=== PATIENT | female | born 1980 | race Caucasian/White ===

== ENCOUNTER 2016-05-06 16:00 | Inpatient (IN) | payer OTHER ==
[~2016-05-06] VITALS: Ht 162.6 cm; Wt 52.6 kg
[~2016-05-06 16:00] MED LIST: MYSOLINE50 MG PO; NORCO 5/325 MG1 TAB PO; PARLODEL2.5 M1 PO; PERCOCET 5/3251 TAB PO
[2016-05-06 16:04] VITALS: BP 125/84
--- NOTE | 2016-05-06 16:30 | NUR ---
35/F BIB FAMILY C/O RIGHT LOWER ABDOMINAL PAIN ,N/V & HEADACHE X 3 DAYS. SKIN IS PINK/WARM/DRY; AAOX4 WITH EVEN AND STEADY GAIT; LUNGS CLEAR BL; HR EVEN AND REGULAR; PT DENIES ANY FEVER, CP, SOB, OR COUGH AT THIS TIME; PATIENT STATES PAIN OF 10/10 AT THIS TIME; VSS; PATIENT POSITIONED FOR COMFORT; HOB ELEVATED; BEDRAILS UP X2; BED DOWN. ER MD MADE AWARE OF PT STATUS.
[2016-05-06] MEDS ORDERED: NACL 0.9% 1,000 ML IV SCH (16:47)
[2016-05-06] MEDS ORDERED: NACL 0.9% 1,000 ML IV ONE ×2 (16:50→18:50)
[2016-05-06] MEDS ORDERED: FAMOTIDINE 20 MG/2 ML VIAL IVP ONE (16:50)
[2016-05-06] MEDS ORDERED: ONDANSETRON 4 MG/2 ML VIAL IVP ONE (16:50)
[2016-05-06] MEDS ORDERED: HYDROmorphone 1 MG/ML AMP IVP ONE ×2 (16:50→18:50)
[2016-05-06] MEDS ORDERED: DEXT 5% / NACL 0.45% 1,000 ML IV ONE (18:50)
--- NOTE | 2016-05-06 19:20 | NUR ---
CALLED TO GIVE REPORT, BRANDY LEYVA WILL CALL BACK IN 5 MINS
--- NOTE | 2016-05-06 19:27 | NUR ---
Patient will be admitted to care of DR RINKU TRAYLOR. Admited to [facility]. Will go to [id number] . Belongings list completed. Report to BRANDY LEYVA.
[2016-05-06 20:00] VITALS: BP 113/78
--- NOTE | 2016-05-06 20:00 | NUR ---
ADMITTED 35 Y/O FEMALE TO MED/SURG FROM ER AT 1940 PM WITH DX: ABDOMINAL PAIN. INITIAL ASSESSMENT, BODY CHECK AND ADMISSION INTERVENTION DONE. PATIENT AAO X 4, ABLE TO FOLLOW COMMAND AND MAKE KNOWN AND AMBULATORY BY SELF WITH STEADY GAIT. NO S/S OF DISTRESS OR SOB NOTED UPON ADMISSION. PAIN UNDER CONTROL AFTER POST-MEDICATION IN ER. SKIN WARM/DRY TO TOUCH WITH NORMAL COLOR AND INTACT. INSTRUCTED PATIENT TO UNIT/ENVIRONMENT. ALSO, DISCUSSED PLAN OF CARE, PAIN MANAGEMENT AND MEDICATION REGIMEN WITH PATIENT AND PATIENT VERBALIZED UNDERSTANDING. PLACED PATIENT ON SAFETY/SEIZURE PRECAUTIONS AND WILL CONTINUE TO MONITOR. CALL LIGHT LEFT WITHIN REACH.
[2016-05-06] MEDS: MORPHINE SULFATE 2 MG/ML SYR IVP PRN (21:19)
[2016-05-06] MEDS ORDERED: PNEUMOCOCCAL VACCINE 23 MCG/0.5 ML VIAL IMVAC SCH (21:35)
--- NOTE | 2016-05-06 21:58 | NUR ---
ADMINISTERED IVF AND PRN MEDICATIONS FOR C/O ABDOMINAL PAIN MD'S ORDERED WITH EDUCATION GIVEN. PATIENT TOLERATED WELL AND STATED WITH SOME PAIN RELIEF, 2/10, AFTER 30 MINS POST-MEDICATION. ALL NEEDS ARE ATTENDED. KEPT PATIENT IN COMFORTABLE POSITION/WARM AND WILL CONTINUE TO MONITOR.
[2016-05-07] VITALS: BP 114/63
--- NOTE | 2016-05-07 00:40 | NUR ---
PATIENT RESTED QUIETLY IN BED. V/S REMAINED WNL AND NO S/S OF DISTRESS NOTED. WILL CONTINUE TO MONITOR.
--- NOTE | 2016-05-07 03:00 | NUR ---
ROUNDS MADE, SEEN PATIENT AMBULATED TO THE RESTROOM BY SELF AND TOLERATED WELL. NO CHANGE IN CONDITION NOTED.
[2016-05-07] MEDS: MORPHINE SULFATE 2 MG/ML SYR IVP PRN ×3 (04:45→14:49)
--- NOTE | 2016-05-07 04:50 | NUR ---
ADMINISTERED PAIN MEDICATION ORDERED FOR C/O LOWER ABDOMINAL PAIN. V/S REMAINED WNL. WILL CONTINUE TO MONITOR FOR EFFECTIVENESS.
--- NOTE | 2016-05-07 07:18 | NUR ---
ENDORSED PLAN OF CARE TO BRANDY RHODES, AT BEDSIDE. PATIENT REMAINED IN STABLE CONDITION AND NO APPARENT DISTRESS NOTED.
--- NOTE | 2016-05-07 07:20 | NUR ---
RECEIVED REPORT FROM KANDY RN. PT SLEEPING IN BED. AAOX4. NO S/S OF ACUTE DISTRESS. IV SITE PATENT AND INTACT. CALL LIGHT WITHIN REACH. SAFETY MEASURES ENSURED. WILL CONTINUE TO MONITOR.
[2016-05-07 08:00] VITALS: BP 108/67
--- NOTE | 2016-05-07 10:36 | NUR ---
PT RESTING IN BED. NO S/S OF ACUTE DISTRESS. PT STATES PAIN IS 7/10. MEDICATED ORDERED. CALL LIGHT WITHIN REACH. SAFETY MEASURES ENSURED. WILL CONTINUE TO MONITOR.
--- NOTE | 2016-05-07 11:55 | NUR ---
PT RESTING IN BED. NO S/S OF ACUTE DISTRESS. PT STATES PAIN IS 2/10, REDUCED AND TOLERABLE. CALL LIGHT WITHIN REACH. SAFETY MEASURES ENSURED. WILL CONTINUE TO MONITOR.
[2016-05-07] MEDS ORDERED: NICOTINE TRANSD SYS 21 MG/24 HR PATCH TD SCH (13:52)
--- NOTE | 2016-05-07 14:25 | NUR ---
PT RESTING IN BED. NO S/S OF ACUTE DISTRESS. PT DENIES PAIN. CALL LIGHT WITHIN REACH. SAFETY MEASURES ENSURED. WILL CONTINUE TO MONITOR.
--- NOTE | 2016-05-07 16:15 | NUR ---
PT RESTING IN BED. NO S/S OF ACUTE DISTRESS. PT STATES PAIN IS 10/10 EVEN AFTER MORPHINE ADMINISTRATION. PT'S STOMACH APPEARS BLOATED. DR. WILSON MADE AWARE. NEW ORDERS RECEIVED. WILL FOLLOW UP WITH PLAN OF CARE. CALL LIGHT WITHIN REACH. SAFETY MEASURES ENSURED. WILL CONTINUE TO MONITOR.
[2016-05-07 16:16] VITALS: BP 123/75
[2016-05-07] MEDS: HYDROmorphone 1 MG/ML AMP IVP PRN ×2 (16:29→21:06)
--- NOTE | 2016-05-07 19:10 | NUR ---
ENDORSED PLAN OF CARE TO NIGHT RN. PT REMAINS IN STABLE CONDITION.
--- NOTE | 2016-05-07 19:28 | NUR ---
RECEIVED REPORT FROM BRANDY RHODES, AT BEDSIDE. INITIAL ASSESSMENT AND BODY CHECK DONE. PATIENT AAO X 4, ABLE TO FOLLOW COMMAND AND MAKE KNOWN AND AMBULATORY BY SELF WITH STEADY GAIT. PATIENT CURRENTLY LYING DOWN ON THE BED AND WATCHING TV. NO S/S OF DISTRESS OR SOB NOTED. SKIN WARM/DRY TO TOUCH WITH NORMAL COLOR AND INTACT. PATIENT STILL C/O MILD LOWER ABDOMINAL PAIN AT THIS TIME. DISCUSSED PLAN OF CARE, PAIN MANAGEMENT AND MEDICATION REGIMEN WITH PATIENT AND PATIENT VERBALIZED UNDERSTANDING. PLACED PATIENT ON SAFETY/SEIZURE PRECAUTIONS AND WILL CONTINUE TO MONITOR. CALL LIGHT LEFT WITHIN REACH.
[2016-05-07 19:42] VITALS: BP 107/71
[2016-05-07] MEDS: PRIMIDONE 50 MG TAB PO SCH (20:27)
--- NOTE | 2016-05-07 20:30 | NUR ---
ADMINISTERED DUE MEDICATION MD'S ORDERED WITH EDUCATION GIVEN. PATIENT COMPLYING WITH MEDICATION AND TOLERATE WELL. KEPT PATIENT IN COMFORTABLE POSITION/WARM AND WILL CONTINUE TO MONITOR.
--- NOTE | 2016-05-07 22:30 | NUR ---
ROUNDS MADE, SEEN PATIENT RESTED COMFORTABLY IN BED WITHOUT S/S OF DISTRESS NOTED.
[2016-05-08] VITALS: BP 104/69
--- NOTE | 2016-05-08 00:58 | NUR ---
PATIENT IS CLINICALLY STABLE WITH UNCHANGED V/S. WILL CONTINUE TO MONITOR.
--- NOTE | 2016-05-08 04:10 | NUR ---
PATIENT RESTED WELL WITH EVEN AND UNLABORED RESPIRATORY RATE. NO CHANGE IN CONDITION NOTED. WILL CONTINUE TO MONITOR.
[2016-05-08] MEDS: HYDROmorphone 1 MG/ML AMP IVP PRN ×3 (05:47→20:02)
--- NOTE | 2016-05-08 07:30 | NUR ---
RECEIVED PT RESTING COMFORTABLY IN BED, AAOX4, ABLE TO VERBALIZE NEEDS; NO COMPLAINTS OF PAIN, N/V/D, OR S/S ACUTE DISTRESS AT THIS TIME. ROUTINE/PLAN OF CARE DISCUSSED AND REVIEWED, PT VERBALIZES UNDERSTANDING AND COMPLIANCE. IV SL TO LEFT AC, SITE ASYMPTOMATIC. SAFETY PRECAUTIONS OBSERVED AND MAINTAINED, ENCOURAGED PT TO CALL FOR ASSISTANCE NEEDED.
--- NOTE | 2016-05-08 07:33 | NUR ---
ENDORSED PLAN OF CARE TO BRANDY BEAN, AT BEDSIDE. PATIENT REMAINED IN STABLE CONDITION AND NO APPARENT DISTRESS NOTED.
[2016-05-08 08:00] VITALS: BP 103/70
--- NOTE | 2016-05-08 09:14 | NUR ---
PATIENT HAS BEEN SCREENED AND CATEGORIZED MODERATE NUTRITION RISK. PATIENT WILL BE SEEN WITHIN 3-5 DAYS OF ADMISSION. 05/09/16-05/11/[address]
[2016-05-08] MEDS: BROMOCRIPTINE 2.5 MG TAB PO SCH (09:26)
[2016-05-08] MEDS: NICOTINE TRANSD SYS 21 MG/24 HR PATCH TD SCH (09:32)
--- NOTE | 2016-05-08 09:49 | NUR ---
VSS. ADMINISTERED ROUTINE MEDS ORDERED WITH EDUCATION; MEDICATED WITH DILAUDID IVP FOR C/O SEVERE LOWER ABD PAIN, NARCOTIC EDUCATION AND ALTERNATIVE MEASURES OF PAIN MANAGEMENT DISCUSSED; SEE PAIN ASSESSMENT ENCOURAGED PT TO AMBULATE AND INCREASE PO FLUID INTAKE TO RELIEVE CONSTIPATION, PT VERBALIZES UNDERSTANDING AND COMPLIANCE. WILL CONTINUE TO MONITOR.
[2016-05-08] MEDS ORDERED: SODIUM PHOSPHATE 118 ML ENEM RC SCH (11:45)
--- NOTE | 2016-05-08 11:45 | NUR ---
PT SEEN AND ASSESSED BY DR HOGAN, DISCUSSED PT CONDITION AND PLAN OF CARE. NEW ORDERS ACKNOWLEDGED AND CARRIED OUT.
--- NOTE | 2016-05-08 13:35 | NUR ---
PT FINISHED LUNCH TRAY, C/O BLOATING. ENCOURAGED PT TO AMBULATE IN HALLWAY, AGREES TO HAVE FLEET ENEMA AFTERWARD. AMBULATING WITH SIGNIFICANT OTHER, STEADY GAIT NOTED.
--- NOTE | 2016-05-08 14:17 | NUR ---
PATIENT REFUSED FLEET ENEMA, STATES IT CAUSES DISCOMFORT TO HEMORRHOIDS. STATES SHE IS PASSING GAS WITH PRUNE JUICE. ENCOURAGED FLUIDS, PROVIDED MORE PRUNE JUICE AND WATER. WILL CONTINUE TO MONITOR.
--- NOTE | 2016-05-08 15:00 | NUR ---
PT PASSED SMALL AMT FORMED GREEN/BROWN STOOL. ENCOURAGED CONTINUED PO FLUID INTAKE, PT COMPLIANT.
[2016-05-08] MEDS: oxyCODONE/APAP 5/325 MG 1 TAB TAB PO PRN (15:53)
[2016-05-08 16:00] VITALS: BP 104/66
--- NOTE | 2016-05-08 18:00 | NUR ---
PT TOLERATING SOFT DIET WELL. NO S/S DISTRESS.
--- NOTE | 2016-05-08 19:10 | NUR ---
CONDITION STABLE, ENDORSED PLAN OF CARE TO BETA TESTER RN.
--- NOTE | 2016-05-08 19:22 | NUR ---
RECEIVED REPORT FROM DAY RN FOR CONTINUITY OF CARE. PATIENT IS A&OX4, DISCUSSED PLAN OF CARE WITH PATIENT, VERBALIZED UNDERSTANDING. SHIFT ASSESSMENT DONE, VS TAKEN, IN STABLE CONDITION. NO S/S OF RESPIRATORY DISTRESS NOTED ON ROOM AIR. PATIENT STATES PAIN 6/10 IN ABDOMEN AND HEADACHE, WILL MEDICATE PER MD ORDER. IV TO LT AC 2OG PATENT AND FLUSHED. SKIN INTACT. SAFETY PRECAUTIONS ENFORCED. FAMILY MEMBER AT BEDSIDE. CALL LIGHT WITHIN REACH, WILL CONTINUE TO MONITOR.
[2016-05-08 20:00] VITALS: BP 108/63
--- NOTE | 2016-05-08 20:02 | NUR ---
PT C/O 9/10 ABDOMINAL PAIN AND HEADACHE, MEDICATED PER MD ORDER. VS STABLE. CALL LIGHT WITHIN REACH.
[2016-05-08] MEDS: PRIMIDONE 50 MG TAB PO SCH (21:03)
--- NOTE | 2016-05-08 21:03 | NUR ---
DUE MEDICATION ADMINISTERED, TOLERATED WELL. PT IS AWAKE WATCHING TV. PT STATES PAIN IS "MUCH BETTER". CALL LIGHT WITHIN REACH.
--- NOTE | 2016-05-08 23:58 | NUR ---
VS TAKEN, STABLE. PT IS LAYING FLAT IN BED WITH NO S/S OF DISTRESS OR DISCOMFORT NOTED. STATES SHE "WANTS TO TRY TO SLEEP." CALL LIGHT WITHIN REACH.
--- NOTE | 2016-05-09 01:54 | NUR ---
PT IS SLEEPING. NO S/S OF DISTRESS OR DISCOMFORT NOTED. WILL CONTINUE TO MONITOR.
[2016-05-09] MEDS: HYDROmorphone 1 MG/ML AMP IVP PRN ×3 (02:22→21:17)
--- NOTE | 2016-05-09 04:02 | NUR ---
PT IS SLEEPING. NO S/S OF DISTRESS OR DISCOMFORT NOTED. CALL LIGHT WITHIN REACH.
--- NOTE | 2016-05-09 06:02 | NUR ---
PATIENT IS AWAKE IN BED. NO S/S OF DISTRESS OR DISCOMFORT NOTED. WILL CONTINUE TO MONITOR.
--- NOTE | 2016-05-09 07:15 | NUR ---
ENDORSED PATIENT TO DAYSHIFT RN FOR CONTINUITY OF CARE, PATIENT IS IN STABLE CONDITION.
[2016-05-09 08:00] VITALS: BP 108/63
[2016-05-09] MEDS: BROMOCRIPTINE 2.5 MG TAB PO SCH (09:07)
[2016-05-09] MEDS: oxyCODONE/APAP 5/325 MG 1 TAB TAB PO PRN (09:08)
[2016-05-09] MEDS: NICOTINE TRANSD SYS 21 MG/24 HR PATCH TD SCH (09:08)
--- NOTE | 2016-05-09 09:11 | NUR ---
VSS. ADMINISTERED ROUTINE MEDS ORDERED WITH EDUCATION. PERCOCET GIVEN FOR C/O MIGRAINE, SEE PAIN ASSESSMENT. PT TOLERATED WELL, INDEPENDENT ADLs OBSERVED. ENCOURAGED PO FLUID INTAKE AND AMBULATION.
--- NOTE | 2016-05-09 11:30 | NUR ---
PT SHOWERED, GOWN AND LINEN CHANGED.
--- NOTE | 2016-05-09 14:45 | NUR ---
PT EVALUATED BY DR HOGAN, DISCUSSED PT CONDITION AND PLAN OF CARE, NEW ORDERS ACKNOWLEDGED. INSTRUCTED PT TO REMAIN NPO FROM NOW UNTIL US ABD COMPLETED. PT VERBALIZES UNDERSTANDING AND COMPLIANCE.
[2016-05-09 16:00] VITALS: BP 104/68
--- NOTE | 2016-05-09 17:45 | NUR ---
DINNER TRAY HELD FOR US ABD. PT AWARE.
[2016-05-09] MEDS ORDERED: METOCLOPRAMIDE 10 MG/2 ML INJ VIAL IVP PRN (18:10)
--- NOTE | 2016-05-09 19:27 | NUR ---
CONDITION STABLE, ENDORSED PLAN OF CARE TO HIM SPECIALIST RN.
--- NOTE | 2016-05-09 19:30 | NUR ---
RECEIVED PT IN STABLE CONDITION FROM AM NURSE. AWAKE,ALERT AN ORIENTED X4/ MED SURG PT. WITH HL ON THE LT AC#20. CLEAR AND PATENT. FAMILY AT BEDSIDE. AWAITING FOR US OF ABDOMEN. SO PT KEPT NPO . INSTRUCTED PT THE NEED TO PUT THE PADS ON SIDE RAILS FOR PROTECTION. VERBALIZED UNDERSTANDING. CALL LIGHT PLACED WITHIN EASY REACH. WILL CONTINUE TO MONITOR.
--- NOTE | 2016-05-09 20:15 | NUR ---
US ABDOMEN DONE AT BEDSIDE. WILL FOLLOW UP RESULT.
[2016-05-09] MEDS ORDERED: AMITRIPTYLINE 25 MG TAB PO SCH (21:00)
[2016-05-09] MEDS ORDERED: MAGNESIUM OXIDE 400 MG TAB PO SCH (21:00)
[2016-05-09] MEDS: POLYETHYLENE GLYCOL 17 GM/PKT PO SCH (21:07)
[2016-05-09] MEDS: PRIMIDONE 50 MG TAB PO SCH (21:07)
[2016-05-09 21:14] VITALS: BP 119/74
--- NOTE | 2016-05-09 23:00 | NUR ---
SLEEPING WELL AT THIS TIME. NO S/S OF ANY DISCOMFORT NOR PAIN NOTED.
[2016-05-10 00:24] VITALS: BP 109/62
--- NOTE | 2016-05-10 01:55 | NUR ---
ASLEEP. NO S/S OF ANY DISCOMFORT NOR PAIN NOTED.
--- NOTE | 2016-05-10 04:00 | NUR ---
SLEEPING WELL AT THIS TIME. NO S/S OF ANY PAIN NOR DISCOMFORT NOTED.
--- NOTE | 2016-05-10 06:00 | NUR ---
PT SAID NO BM YET. BUT ABLE TO VOID X1 DURING THE NIGHT.
[2016-05-10 06:39] VITALS: BP 102/64
[2016-05-10] MEDS: HYDROmorphone 1 MG/ML AMP IVP PRN ×2 (06:42→12:34)
--- NOTE | 2016-05-10 06:42 | NUR ---
C/O PAIN ON RT LOWER ABDOMEN 09/04. MEDICATED ORDERED. WILL CONTINUE TO MONITOR.
--- NOTE | 2016-05-10 07:22 | NUR ---
ENDORSED PT IN STABLE CONDITION TO AM NURSE.
--- NOTE | 2016-05-10 07:23 | NUR ---
PT AWAKE ALERT AND ORIENTED X4. BREATHING EVENLY AND UNLABORED, NO SIGNS OF ACUTE DISTRESS. SKIN IS WARM AND DRY. NO EPISODES OF ANY NAUSEA OR VOMITING. NO C/O OF AND PAIN AT THIS TIME. DENIES OF ANY DISCOMFORT. ABLE TO PERFORM ADL'S INDEPENDENTLY. SAFETY PRECAUTIONS MAINTAINED. ALL NEEDS ATTENDED. CALL LIGHT WITHIN REACH.
[2016-05-10 08:00] VITALS: BP 91/56
[2016-05-10] MEDS: POLYETHYLENE GLYCOL 17 GM/PKT PO SCH (08:22)
[2016-05-10] MEDS: SENNA 8.6 MG TAB PO SCH ×2 (08:22→12:33)
[2016-05-10] MEDS: METOCLOPRAMIDE 10 MG/2 ML INJ VIAL IVP SCH ×2 (08:22→12:34)
[2016-05-10] MEDS: BROMOCRIPTINE 2.5 MG TAB PO SCH (08:23)
[2016-05-10] MEDS: NICOTINE TRANSD SYS 21 MG/24 HR PATCH TD SCH (08:23)
[2016-05-10] MEDS ORDERED: PANTOPRAZOLE 40 MG INJ VIAL IVP SCH (09:00)
--- NOTE | 2016-05-10 09:55 | NUR ---
XENIA NOTE SENT INITIAL REVIEW TO [facility] FAX# [phone] PH# [place] [phone]
--- NOTE | 2016-05-10 14:28 | NUR ---
SPOKE WITH Saundra FERRER. RECEIVED ORDER MAY ADVANCE DIET TO REGULAR TOLERATED. OK TO D/C ON GASTRO STANDPOINT. PAGED DR. WILSON. AWAITING FOR CALL BACK.
[2016-05-10 15:20] VITALS: BP 98/69
--- NOTE | 2016-05-10 15:20 | NUR ---
PT REQUESTED TO SIGN AMA, RISKS AND BENEFITS EXPLAINED, CHARGE NURSE MADE AWARE, DOUGH SCALER AND MIXER AWARE. PAGED DR. WILSON AND AWAITING FOR RESPONSE.
--- NOTE | 2016-05-10 15:25 | NUR ---
PT SIGNED AMA, LEFT UNIT, PERSONAL BELONGINGS WITH PT. PICKED UP BY SIGNIFICANT OTHER. IV LINE AND WRIST BANDS REMOVED. WENT HOME VIA PRIVATE AUTO.
== END 2016-05-10 15:25 | disposition left against medical advice (07) | DRG 282 ==
LOC: MED 16:00 → MTU 18:58 → OBSVTOIN 05-09 14:38
PROVIDERS: ADMIT Internal Medicine Pulmonary Disease; ATTEND Internal Medicine Pulmonary Disease
DX: K85.30 Drug induced acute pancreatitis without necrosis or infection (principal); I95.9 Hypotension, unspecified; F11.20 Opioid dependence, uncomplicated; E86.0 Dehydration; K86.1 Other chronic pancreatitis; F12.188 Cannabis abuse with other cannabis-induced disorder; M79.7 Fibromyalgia; G40.909 Epilepsy, unspecified, not intractable, without status epilepticus; G89.4 Chronic pain syndrome; J45.909 Unspecified asthma, uncomplicated; K59.09 Other constipation; G43.909 Migraine, unspecified, not intractable, without status migrainosus; M54.5 Low back pain; R11.10 Vomiting, unspecified; F10.21 Alcohol dependence, in remission; F19.10 Other psychoactive substance abuse, uncomplicated; F17.210 Nicotine dependence, cigarettes, uncomplicated; Z71.6 Tobacco abuse counseling; Z90.710 Acquired absence of both cervix and uterus; Z98.890 Other specified postprocedural states; Z88.2 Allergy status to sulfonamides; Y92.89 Other specified places as the place of occurrence of the external cause
CPT/HCPCS: 96361; 96374; 96375; 96376; 99285; G0378

== ENCOUNTER 2016-10-19 03:20 | Emergency (ER) | payer MEDICAID, OTHER ==
[~2016-10-19] VITALS: Ht 162.6 cm; Wt 56.7 kg
[~2016-10-19 03:20] MED LIST changes: -MYSOLINE50 MG PO; -NORCO 5/325 MG1 TAB PO; +OXYC1TAB PO; +PAR2.5 PO; -PARLODEL2.5 M1 PO; -PERCOCET 5/3251 TAB PO; +PRIM50TA13 PO
[2016-10-19 03:33] VITALS: BP 128/75
--- NOTE | 2016-10-19 03:39 | NUR ---
Patient to bed 05.
--- NOTE | 2016-10-19 03:45 | NUR ---
36 Y/O F W/C/O RASH AND PAIN TO R LOWER BACK X 3 DAYS. PT STATES HAS A HX OF SHINGLES, EPILEPSY, FIBROMYALGIA, AND PANCREATITIS. NO S/S OF DISTRESS NOTED. ER MD MADE AWARE.
[2016-10-19] MEDS ORDERED: ACYCLOVIR 500 MG in NACL 0.9% 100 ML IV ONE (04:25)
[2016-10-19] MEDS ORDERED: predniSONE 20 MG TAB PO ONE (04:25)
[2016-10-19] MEDS ORDERED: methylPREDNISolone SS 125 MG in WATER STERILE 2 ML IV ONE (04:25)
[2016-10-19] MEDS ORDERED: HYDROmorphone 1 MG/ML AMP IVP ONE (04:25)
[2016-10-19] MEDS ORDERED: HYDROmorphone 1 MG/ML AMP IM ONE (04:25)
[2016-10-19] MEDS ORDERED: ACYCLOVIR 500 MG VIAL IV ONE (04:38)
--- NOTE | 2016-10-19 04:53 | NUR ---
PT SLEEPING IN BED, VSS. NO S/S OF DISTRESS NOTED AT THIS MOMENT.
[2016-10-19 06:05] VITALS: BP 109/70
--- NOTE | 2016-10-19 06:05 | NUR ---
Patient discharged with v/s stable. Written and verbal after care instructions given and explained. Patient alert, oriented and verbalized understanding of instructions. Ambulatory with steady gait. All questions addressed prior to discharge. ID band removed. Patient advised to follow up with PMD OR RETURN TO ER IF CONDITION WORSENS. Rx of ACYCLOVIR, PREDNISONE, AND NORCO given. Patient educated on indication of medication including possible reaction and side effects. Opportunity to ask questions provided and answered.
== END 2016-10-19 06:05 | disposition home or self-care (01) ==
LOC: MED 03:20
DX: B02.8 Zoster with other complications (principal); R03.0 Elevated blood-pressure reading, without diagnosis of hypertension; Z88.2 Allergy status to sulfonamides; Z79.899 Other long term (current) drug therapy
CPT/HCPCS: 96365; 96375; 99285; J0133; J1170; J2930

== ENCOUNTER 2016-11-26 23:35 | Emergency (ER) | payer MEDICAID, OTHER ==
[~2016-11-26] VITALS: Ht 160 cm; Wt 50.1 kg
[~2016-11-26 23:35] MED LIST changes: +MYSOLINE50 MG PO; +NORCO 5/325 MG1 TAB PO; -OXYC1TAB PO; -PAR2.5 PO; +PARLODEL2.5 M1 PO; +PERCOCET 5/3251 TAB PO; -PRIM50TA13 PO
[2016-11-26 23:46] VITALS: BP 119/74
[2016-11-27] MEDS: KETOROLAC 30 MG/ML VIAL IM ONE (03:24)
[2016-11-27] MEDS: cefTRIAXone 250 MG in LIDOCAINE 1% ED 0.9 ML IM ONE (05:19)
[2016-11-27] MEDS: AZITHROMYCIN 250 MG TAB PO ONE (05:19)
[2016-11-27 05:38] VITALS: BP 120/66
== END 2016-11-27 05:38 | disposition home or self-care (01) ==
LOC: MED 23:35
DX: N76.0 Acute vaginitis (principal); F19.10 Other psychoactive substance abuse, uncomplicated; Z88.2 Allergy status to sulfonamides; Z79.899 Other long term (current) drug therapy; T74.21XA Adult sexual abuse, confirmed, initial encounter; Y93.89 Activity, other specified; Y92.89 Other specified places as the place of occurrence of the external cause; Y99.8 Other external cause status
CPT/HCPCS: 36415; 80053; 80305; 81002; 81025; 83690; 85025; 87491; 96372; 99284; J0696; J1885; J2001

== ENCOUNTER 2016-12-12 17:25 | Emergency (ER) | payer OTHER ==
[~2016-12-12] VITALS: Ht 162.6 cm; Wt 49.9 kg
[~2016-12-12 17:25] MED LIST changes: -MYSOLINE50 MG PO; -NORCO 5/325 MG1 TAB PO; +OXYC1TAB PO; +PAR2.5 PO; -PARLODEL2.5 M1 PO; -PERCOCET 5/3251 TAB PO; +PRIM50TA13 PO
[2016-12-12 17:51] VITALS: BP 117/71
--- NOTE | 2016-12-12 19:44 | NUR ---
PT TAKEN TO BED 6
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
--- NOTE | 2016-12-12 19:46 | NUR ---
Dr. Seals evaluating patient at bedside.
[2016-12-12] MEDS ORDERED: KETOROLAC 30 MG/ML VIAL IM ONE (19:50)
[2016-12-12] MEDS ORDERED: HYDROcodone/APAP 5/325 MG 1 TAB TAB PO ONE (19:50)
[2016-12-12 20:20] VITALS: BP 126/78
--- NOTE | 2016-12-12 20:20 | NUR ---
DPatient discharged with v/s stable. Written and verbal after care instructions given and explained. Patient alert, oriented and verbalized understanding of instructions. Ambulatory with steady gait. All questions addressed prior to discharge. ID band removed. Patient advised to follow up with PMD. Rx of NORCO 5-325MG ONE TAB EVERY 4 HOURS PRN PAIN given. Patient educated on indication of medication including possible reaction and side effects. Opportunity to ask questions provided and answered. HOMELESS PACKET PROVIDED
== END 2016-12-12 20:20 | disposition home or self-care (01) ==
LOC: MED 17:25
DX: Z76.0 Encounter for issue of repeat prescription (principal); G89.29 Other chronic pain; M54.5 Low back pain; M79.7 Fibromyalgia; Z88.2 Allergy status to sulfonamides; Z79.899 Other long term (current) drug therapy
CPT/HCPCS: 96372; 99283; J1885

== ENCOUNTER 2016-12-17 02:03 | Emergency (ER) | payer OTHER ==
[~2016-12-17] VITALS: Ht 162.6 cm; Wt 52.2 kg
[2016-12-17 02:09] VITALS: BP 126/72
--- NOTE | 2016-12-17 02:27 | NUR ---
PT TAKEN TO BED 7
--- NOTE | 2016-12-17 02:30 | NUR ---
PATIENT IS A 36 Y/O FEMALE WHO PRESENTS TO THE ED C/O ABD PAIN. PT STATES, "I HAVE A HERNIA AND I FEEL PAIN IN MY STOMACH." PT REPORTS 6/10 SHARP PAIN THAT RADIATES TO THE GENITAL AREA. PT REPORTS BURNING ON URINATION, DENIES N/V/D, REPORTS CONSTIPATION. PT AAOX4, RR EVEN/UNLABORED, SKIN IS COOL/DRY, AMBULATED TO BED WITH STEADY GAIT. PT REPOSITIONED FOR COMFORT, BED IN LOWEST POSITION. ER MD DR. PERALTA NOTIFIED. WILL CONTINUE TO MONITOR.
--- NOTE | 2016-12-17 02:41 | NUR ---
Adolph luis in ED - 12/17/[address] Lazo evaluating patient at bedside.
[2016-12-17 02:45] LABS: HEMATOCRIT 43.3 % (36-48); HEMOGLOBIN 14.3 g/dL (12.0-16.0); MEAN CORPUSCULAR HEMOGLOBIN 32 pg (27-31); MEAN CORPUSCULAR HGB CONC 33 g/dL (33-37); MEAN CORPUSCULAR VOLUME 98 fL (80-94); PLATELET COUNT (AUTO) 324 K/uL (140-450); RED BLOOD CELL COUNT(AUTO) 4.42 MIL/uL (4.20-5.40); RED CELL DISTRIBUTION WIDTH 11.9 % (11.6-13.7); WHITE BLOOD COUNT (AUTO) 7.7 K/uL (4.8-10.8)
[2016-12-17 02:47] LABS: BILIRUBIN,URINE NEGATIVE (NEGATIVE); BLOOD, URINE 1+ (NEGATIVE); COLOR,URINE YELLOW (YELLOW); LEUKOCYTE ESTERASE ,URINE NEGATIVE (NEGATIVE); NITRITE, URINE NEGATIVE (NEGATIVE); UGLUCOSE NEGATIVE (NEGATIVE)
--- NOTE | 2016-12-17 02:55 | NUR ---
Dr. Lazo evaluating patient at bedside.
[2016-12-17 02:56] LABS: ANION GAP 5.1 (8-16); APPEARANCE,URINE SLIGHTLY HAZY (CLEAR); CARBON DIOXIDE 33.1 mmol/L (21-32); POTASSIUM 4.2 mmol/L (3.5-5.1)
[2016-12-17 03:02] LABS: ALBUMIN 4.1 g/dL (3.4-5.0); TOTAL BILIRUBIN 0.3 mg/dL (0.0-1.0)
[2016-12-17 03:08] LABS: LYMPHOCYTES % (MANUAL) 56 % (20-46); MONOCYTES % (MANUAL) 7 % (5-12)
[2016-12-17 03:12] LABS: RBC,URINE 3-10 (FEW) /HPF (0-5); WBC,URINE 0-5 (RARE) /HPF (0-5)
[2016-12-17 03:13] LABS: CALCIUM OXALATE CRYSTALS,UR 0-10 /HPF (None Seen)
--- NOTE | 2016-12-17 03:18 | NUR ---
PT TAKEN TO CT VIA WHEELCHAIR
--- NOTE | 2016-12-17 03:28 | NUR ---
PT RETURN FROM CT
[2016-12-17 04:30] VITALS: BP 127/70
--- NOTE | 2016-12-17 04:30 | NUR ---
Patient discharged with v/s stable. Written and verbal after care instructions given and explained. Patient verbalized understanding. Ambulatory with steady gait. All questions addressed prior to discharge. Advised to follow up with PMD.
== END 2016-12-17 04:30 | disposition home or self-care (01) ==
LOC: MED 02:03
DX: K42.9 Umbilical hernia without obstruction or gangrene (principal); M79.7 Fibromyalgia; Z90.710 Acquired absence of both cervix and uterus; Z79.899 Other long term (current) drug therapy; Z88.2 Allergy status to sulfonamides
CPT/HCPCS: 36415; 74150; 80053; 81001; 81025; 82150; 83690; 84703; 85025; 99285

== ENCOUNTER 2016-12-21 17:21 | Emergency (ER) | payer OTHER ==
[~2016-12-21] VITALS: Ht 162.6 cm; Wt 50.8 kg
[2016-12-21 17:48] VITALS: BP 120/72
--- NOTE | 2016-12-21 19:10 | NUR ---
Pt ambulated to bed 9.
[2016-12-21] MEDS ORDERED: KETOROLAC 60 MG/2 ML VIAL IM ONE (19:20)
--- NOTE | 2016-12-21 19:20 | NUR ---
Patient being evaluated by Dr. Little at bedside.
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
[2016-12-21 20:00] VITALS: BP 107/65
--- NOTE | 2016-12-21 20:00 | NUR ---
Patient discharged with v/s stable. Written and verbal after care instructions given and explained. Patient alert, oriented and verbalized understanding of instructions. Ambulatory with steady gait. All questions addressed prior to discharge. ID band removed. Patient advised to follow up with PMD. Rx of MOTRIN 600MG, NORCO 5MG given. Patient educated on indication of medication including possible reaction and side effects. Opportunity to ask questions provided and answered.
== END 2016-12-21 20:00 | disposition home or self-care (01) ==
LOC: MED 17:21
DX: M54.2 Cervicalgia (principal); M79.602 Pain in left arm; M79.601 Pain in right arm; F17.210 Nicotine dependence, cigarettes, uncomplicated; Z90.710 Acquired absence of both cervix and uterus; Z79.899 Other long term (current) drug therapy; Z88.2 Allergy status to sulfonamides; Y04.8XXA Assault by other bodily force, initial encounter; Y93.89 Activity, other specified; Y92.89 Other specified places as the place of occurrence of the external cause; Y99.8 Other external cause status
CPT/HCPCS: 96372; 99283; J1885

== ENCOUNTER 2017-01-13 21:50 | Emergency (ER) | payer OTHER ==
[~2017-01-13] VITALS: Ht 160 cm; Wt 52.2 kg
--- NOTE | 2017-01-13 21:50 | NUR ---
PT JM MAIN. STILL AWAITNG FOR BED. [place] WITH PT
[2017-01-13 22:03] VITALS: BP 128/78
--- NOTE | 2017-01-13 23:45 | NUR ---
PT TAKEN TO BED 10
[2017-01-14 01:15] LABS: HEMATOCRIT 38.5 % (36-48); HEMOGLOBIN 13.4 g/dL (12.0-16.0); MEAN CORPUSCULAR HEMOGLOBIN 34 pg (27-31); MEAN CORPUSCULAR HGB CONC 35 g/dL (33-37); MEAN CORPUSCULAR VOLUME 96 fL (80-94); PLATELET COUNT (AUTO) 242 K/uL (140-450); RED BLOOD CELL COUNT(AUTO) 3.99 MIL/uL (4.20-5.40); RED CELL DISTRIBUTION WIDTH 12.4 % (11.6-13.7); WHITE BLOOD COUNT (AUTO) 9.1 K/uL (4.8-10.8)
[2017-01-14 01:28] LABS: LYMPHOCYTES % (MANUAL) 22 % (20-46); MONOCYTES % (MANUAL) 6 % (5-12)
[2017-01-14 01:32] LABS: ANION GAP 13.9 (8-16); CARBON DIOXIDE 25.6 mmol/L (21-32); CREATININE 0.7 mg/dL (0.6-1.3); POTASSIUM 3.5 mmol/L (3.5-5.1)
[2017-01-14 01:33] LABS: ALBUMIN 2.6 g/dL (3.4-5.0); TOTAL BILIRUBIN 0.5 mg/dL (0.0-1.0)
[2017-01-14 02:10] VITALS: BP 117/63
== END 2017-01-14 02:10 | disposition home or self-care (01) ==
LOC: MED 21:50
DX: S53.491A Other sprain of right elbow, initial encounter (principal); R03.0 Elevated blood-pressure reading, without diagnosis of hypertension; F41.9 Anxiety disorder, unspecified; F32.9 Major depressive disorder, single episode, unspecified; Z85.118 Personal history of other malignant neoplasm of bronchus and lung; Z85.841 Personal history of malignant neoplasm of brain; Z88.2 Allergy status to sulfonamides; Z79.899 Other long term (current) drug therapy; Y04.2XXA Assault by strike against or bumped into by another person, initial encounter; Y93.89 Activity, other specified; Y92.89 Other specified places as the place of occurrence of the external cause; Y99.8 Other external cause status
CPT/HCPCS: 73080; 80053; 82150; 83690; 85025; 99285; Q0092

== ENCOUNTER 2017-02-16 04:20 | Emergency (ER) | payer OTHER ==
[~2017-02-16] VITALS: Ht 154.9 cm; Wt 54.4 kg
[2017-02-16 04:23] VITALS: BP 126/71
[2017-02-16] MEDS ORDERED: KETOROLAC 60 MG/2 ML VIAL IM ONE (05:00)
--- NOTE | 2017-02-16 05:00 | NUR ---
36Y/F PRESENTS TO ER C/O EAR, THROAT PAIN. ALLERGY TO SULFA, PMH FIBROMYALGIA, PANCREATITIS, EPILEPSY. PT STATES SHE HAS HAD BL EAR PAIN, SORE THROAT, AND COUGH X3 DAYS. PT RATES EAR PAIN9/10 RADIATING TO WHOLE HEAD, SHARP PAIN. PT STATES SHE HAS COUGH W/ THICK YELLOW SPUTUM, PT DENIES SOB. PT IS NAUSEOUS W/ NO VOMITING OR DIARRHEA, ABD FLAT, SOFT, NONTENDER. PT STATES SHE TOOK MOTRIN AT HOME W/ NO RELIEF. PT IN BED, ER MD AWARE OF PT STATUS. SIDE RAIL UP X1, VSS, AA&OX4.
--- NOTE | 2017-02-16 05:05 | NUR ---
DR NEAL AT BEDSIDE EVALUATING PT.
[2017-02-16 05:30] VITALS: BP 126/71
--- NOTE | 2017-02-16 05:30 | NUR ---
Patient discharged with v/s stable. Written and verbal after care instructions given and explained. Patient alert, oriented and verbalized understanding of instructions. Ambulatory with steady gait. All questions addressed prior to discharge. ID band removed. Patient advised to follow up with PMD. Rx of MOTRIN 600MG, ZOFRAN 8MG, NORCO 5MG, PREDNISONE 50MG given. Patient educated on indication of medication including possible reaction and side effects. Opportunity to ask questions provided and answered.
== END 2017-02-16 05:30 | disposition home or self-care (01) ==
LOC: MED 04:20
DX: J02.9 Acute pharyngitis, unspecified (principal); H92.02 Otalgia, left ear; Z85.118 Personal history of other malignant neoplasm of bronchus and lung; Z85.841 Personal history of malignant neoplasm of brain; Z88.2 Allergy status to sulfonamides; Z90.710 Acquired absence of both cervix and uterus
CPT/HCPCS: 96372; 99283; J1885

== ENCOUNTER 2017-05-07 22:57 | Emergency (ER) | payer OTHER ==
[~2017-05-07] VITALS: Ht 160 cm; Wt 52.6 kg
[2017-05-07 23:01] VITALS: BP 133/74
--- NOTE | 2017-05-07 23:22 | NUR ---
PATIENT AMBULATED TO ER BED12
--- NOTE | 2017-05-07 23:28 | NUR ---
36Y F BIB FAMILY C/O URINATING BURNING X 1 DAY. PT STATES PAIN RADIAITED TO BILAT FLANK. PT DENIES ANY N/V/D/,SOB, CP AT THE MOMENT. PT AAOX4. BREATHING IS UNLABORED AND EVEN. ER MD DR LOPEZ MADE AWARE.
[2017-05-07 23:30] LABS: APPEARANCE,URINE CLOUDY (CLEAR); BILIRUBIN,URINE 1+ (NEGATIVE); BLOOD, URINE 1+ (NEGATIVE); COLOR,URINE YELLOW (YELLOW); LEUKOCYTE ESTERASE ,URINE 1+ (NEGATIVE); NITRITE, URINE NEGATIVE (NEGATIVE); UGLUCOSE NEGATIVE (NEGATIVE)
[2017-05-07 23:58] LABS: RBC,URINE 3-10 (FEW) /HPF (0-5); WBC,URINE TOO MANY TO COUNT /HPF (0-5)
[2017-05-08] MEDS ORDERED: cefTRIAXone 1,000 MG VIAL ONE (00:54)
[2017-05-08] MEDS: NACL 0.9% 1,000 ML IV ONE (01:04)
[2017-05-08] MEDS ORDERED: HYDROcodone/APAP 10/325 MG 1 TAB TAB ONE (01:10)
[2017-05-08] MEDS: HYDROcodone/APAP 10/325 MG 1 TAB TAB PO STA (01:12)
[2017-05-08 02:57] VITALS: BP 117/79
--- NOTE | 2017-05-08 02:58 | NUR ---
Patient discharged with v/s stable. Written and verbal after care instructions given and explained. Patient alert, oriented and verbalized understanding of instructions. Ambulatory with steady gait. All questions addressed prior to discharge. ID band removed. Patient advised to follow up with PMD. Rx of IBUPROFEN, CEPHALEXIN, PHENAZOPYRIDINE HYDROCHLORIDE given. Patient educated on indication of medication including possible reaction and side effects. Opportunity to ask questions provided and answered.
== END 2017-05-08 02:58 | disposition home or self-care (01) ==
LOC: MED 22:57
DX: N39.0 Urinary tract infection, site not specified (principal); Z79.899 Other long term (current) drug therapy; Z88.2 Allergy status to sulfonamides; Z85.118 Personal history of other malignant neoplasm of bronchus and lung; Z85.841 Personal history of malignant neoplasm of brain
CPT/HCPCS: 81001; 87086; 87186; 96365; 99284; J0696; J7060

== ENCOUNTER 2017-05-29 02:40 | Emergency (ER) | payer OTHER ==
[~2017-05-29] VITALS: Ht 160 cm; Wt 63.5 kg
[2017-05-29 02:56] VITALS: BP 128/77
--- NOTE | 2017-05-29 03:13 | NUR ---
PT TAKEN TO CHAIR C
--- NOTE | 2017-05-29 03:19 | NUR ---
Dr. Lazo evaluating patient.
--- NOTE | 2017-05-29 03:19 | NUR ---
Pt presents to ED with burning and itching with urination with bilateral lower abdominal pain x3 days. Pt states white discharge from vaginal area. VSS. Afebrile. ER MD at chairside for evaluation. Continue to monitor.
--- NOTE | 2017-05-29 03:27 | NUR ---
PT MOVED TO BED 10
--- NOTE | 2017-05-29 03:30 | NUR ---
CHAPPERONED DR AT BEDSIDE DURING PELVIC EXAM
[2017-05-29 03:34] LABS: APPEARANCE,URINE CLEAR (CLEAR); BILIRUBIN,URINE NEGATIVE (NEGATIVE); BLOOD, URINE NEGATIVE (NEGATIVE); COLOR,URINE YELLOW (YELLOW); LEUKOCYTE ESTERASE ,URINE NEGATIVE (NEGATIVE); NITRITE, URINE POSITIVE (NEGATIVE); UGLUCOSE TRACE (NEGATIVE)
--- NOTE | 2017-05-29 03:38 | NUR ---
PT RETURN TO CHAIR C
[2017-05-29 04:10] LABS: RBC,URINE 0-5 (RARE) /HPF (0-5)
[2017-05-29] MEDS ORDERED: AZITHROMYCIN 250 MG TAB PO ONE (04:45)
[2017-05-29] MEDS ORDERED: cefTRIAXone 250 MG in LIDOCAINE MPF 1% - **ER/OR** 0.9 ML IM ONE (04:45)
[2017-05-29 05:36] VITALS: BP 128/77
--- NOTE | 2017-05-29 05:36 | NUR ---
Patient discharged with v/s stable. Written and verbal after care instructions given and explained. Patient alert, oriented and verbalized understanding of instructions. Ambulatory with steady gait. All questions addressed prior to discharge. ID band removed. Patient advised to follow up with PMD. Rx of Nitrofurantoin, Phenazopyridine given. Patient educated on indication of medication including possible reaction and side effects. Opportunity to ask questions provided and answered.
[2017-05-31 06:16] LABS: CHLAMYDIA TRACHOMATIS AMP DNA Negative (Negative)
== END 2017-05-29 05:36 | disposition home or self-care (01) ==
LOC: MED 02:40
DX: N39.0 Urinary tract infection, site not specified (principal); G40.909 Epilepsy, unspecified, not intractable, without status epilepticus; Z88.2 Allergy status to sulfonamides; Z79.899 Other long term (current) drug therapy; Z85.118 Personal history of other malignant neoplasm of bronchus and lung; Z85.841 Personal history of malignant neoplasm of brain
CPT/HCPCS: 36415; 81001; 81025; 87086; 87210; 87491; 96372; 99284; J0696; J2001; 87804

== ENCOUNTER 2017-07-02 07:33 | Emergency (ER) | payer OTHER ==
[~2017-07-02] VITALS: Ht 160 cm; Wt 55.3 kg
[2017-07-02 07:41] VITALS: BP 119/80
[2017-07-02 07:49] VITALS: BP 106/64
--- NOTE | 2017-07-02 07:53 | NUR ---
PT TAKEN TO BED 4.
--- NOTE | 2017-07-02 08:00 | NUR ---
37 YO F BIB SELF W/ C/O SHARP, ACHING ABD PAIN 9/10 X 2-3 WEEKS THAT RADIATES TO HER RIGHT SHOULDER. DENIES N/V/D AT THIS TIME. PT A&O X 4. GCS 15. CMS INTACT. AMBULATORY W/ STEADY GAIT. RR EVEN AND UNLABORED. LUNGS BILAT CLEAR AT THIS TIME. ABD SOFT, NON-TENDER TO PALPATION. ER MD BURLESON NOTIFIED. PT NEEDS MET. SAFETY PRECAUTIONS IN PLACE. PT NEEDS MET. WILL CONTINUE TO MONITOR.
[2017-07-02] MEDS ORDERED: KETOROLAC 30 MG/ML VIAL IM ONE (08:25)
--- NOTE | 2017-07-02 08:30 | NUR ---
LAB AT BEDSIDE AT THIS TIME.
--- NOTE | 2017-07-02 08:39 | NUR ---
U/S AT BEDSIDE AT THIS TIME.
[2017-07-02 08:49] LABS: BASOPHILS # (AUTO) 0.1 K/uL (0.00-0.22); BASOPHILS % (AUTO) 2.3 % (0.0-2.0); EOSINOPHILS # (AUTO) 0.1 K/uL (0-0.4); EOSINOPHILS % (AUTO) 1.6 % (0.0-4.0); HEMATOCRIT 41.6 % (36-48); HEMOGLOBIN 13.6 g/dL (12.0-16.0); LYMPHOCYTES # (AUTO) 2.2 K/uL (2.5-16.5); LYMPHOCYTES % (AUTO) 44.1 % (20.5-51.1); MEAN CORPUSCULAR HEMOGLOBIN 30 pg (27-31); MEAN CORPUSCULAR HGB CONC 33 g/dL (33-37); MEAN CORPUSCULAR VOLUME 92.6 fL (80-94); MONOCYTES # (AUTO) 0.4 K/uL (0.8-1.0); MONOCYTES % (AUTO) 9.1 % (1.7-9.3); NEUTROPHILS # (AUTO) 2.1 K/uL (1.8-7.7); NEUTROPHILS % (AUTO) 42.9 % (42.2-75.2); PLATELET COUNT (AUTO) 264 K/uL (140-450); RED BLOOD CELL COUNT(AUTO) 4.49 MIL/uL (4.20-5.40); WHITE BLOOD COUNT (AUTO) 4.9 K/uL (4.8-10.8)
[2017-07-02 08:57] LABS: ANION GAP 7.1 (8-16); CREATININE 0.8 mg/dL (0.6-1.3); POTASSIUM 4.1 mmol/L (3.5-5.1)
[2017-07-02 08:59] LABS: BARBITURATE, URINE NEG. ng/ml (NEG <=200); BENZODIAZEPINE, URINE NEG. ng/mL (NEG <=200); CANNABINOID, URINE NEG. ng/mL (NEG <=50); COCAINE, URINE NEG. ng/mL (NEG <=300); OPIATE, URINE POS. ng/mL (NEG <=2000); PHENCYCLIDINE SCREEN,URINE NEG. ng/mL (NEG <=25)
[2017-07-02 09:03] LABS: ALBUMIN 3.6 g/dL (3.4-5.0); TOTAL BILIRUBIN 0.2 mg/dL (0.0-1.0)
[2017-07-02 09:53] VITALS: BP 105/62
== END 2017-07-02 09:53 | disposition home or self-care (01) ==
LOC: MED 07:33
DX: R10.11 Right upper quadrant pain (principal); F15.10 Other stimulant abuse, uncomplicated; Z79.899 Other long term (current) drug therapy; Z88.2 Allergy status to sulfonamides; Z90.710 Acquired absence of both cervix and uterus
CPT/HCPCS: 36415; 76705; 80053; 80305; 81002; 81025; 83690; 85025; 96372; 99285; J1885; Q0092

== ENCOUNTER 2017-07-12 13:01 | Emergency (ER) | payer OTHER ==
[~2017-07-12] VITALS: Ht 160 cm; Wt 54.4 kg
[2017-07-12 13:22] VITALS: BP 139/79
[2017-07-12] MEDS: ONDANSETRON 4 MG/2 ML VIAL IVP ONE (14:22)
[2017-07-12] MEDS: NACL 0.9% 500 ML IV ONE ×2 (14:22→14:40)
[2017-07-12] MEDS: KETOROLAC 30 MG/ML VIAL IVP ONE (14:22)
[2017-07-12] MEDS: PHENAZOPYRIDINE 100 MG TAB PO ONE (15:34)
[2017-07-12] MEDS: IBUPROFEN 800 MG TAB PO ONE (15:35)
[2017-07-12 16:00] VITALS: BP 130/74
== END 2017-07-12 16:00 | disposition home or self-care (01) ==
LOC: MED 13:01
DX: N30.90 Cystitis, unspecified without hematuria (principal); K59.00 Constipation, unspecified; M79.7 Fibromyalgia; Z90.710 Acquired absence of both cervix and uterus; Z79.899 Other long term (current) drug therapy; Z88.2 Allergy status to sulfonamides
CPT/HCPCS: 74176; 81002; 81025; 96361; 96374; 96375; 99284; J1885; J2405; J7030

== ENCOUNTER 2018-01-25 22:09 | Emergency (ER) | payer OTHER ==
[~2018-01-25] VITALS: Ht 162.6 cm; Wt 61.2 kg
[2018-01-25 22:14] VITALS: BP 140/90
--- NOTE | 2018-01-25 22:15 | NUR ---
TO BED # 12 AMBULATORY, REPORT GIVEN TO ADRYAN NAVA
[2018-01-25] MEDS ORDERED: traMADol 50 MG TAB PO ONE (22:30)
[2018-01-25] MEDS ORDERED: ACETAMINOPHEN EXTRA STRENGTH 500 MG TAB PO ONE (22:30)
[2018-01-25] MEDS ORDERED: AMOXIL/CLAVULANATE 875/125 MG 1 TAB PO ONE (22:30)
[2018-01-25] MEDS ORDERED: ONDANSETRON 4 MG ODT PO ONE (22:30)
--- NOTE | 2018-01-25 22:35 | NUR ---
37/F presents to ED with complaints of painful urination, lower abdominal pain with lower back pain x3 days. Pt also reports frequency, dysuria. NAD noted. VSS. AOX4, ambulatory with steady gait.
[2018-01-25 22:51] LABS: BILIRUBIN,URINE NEGATIVE (NEGATIVE); BLOOD, URINE NEGATIVE (NEGATIVE); COLOR,URINE YELLOW (YELLOW); LEUKOCYTE ESTERASE ,URINE NEGATIVE (NEGATIVE); NITRITE, URINE NEGATIVE (NEGATIVE); UGLUCOSE NEGATIVE (NEGATIVE)
[2018-01-25] MEDS ORDERED: AMOXIL/CLAVULANATE 875/125 MG 1 TAB ONE (22:58)
[2018-01-25 23:17] LABS: APPEARANCE,URINE SLIGHTLY HAZY (CLEAR)
[2018-01-25 23:18] LABS: RBC,URINE 0-5 (RARE) /HPF (0-5); WBC,URINE 0-5 (RARE) /HPF (0-5)
--- NOTE | 2018-01-25 23:30 | NUR ---
PATIENT RESTING AT THIS TIME. NO SIGNS OF DISTRESS.
[2018-01-26 00:25] VITALS: BP 138/84
--- NOTE | 2018-01-26 00:25 | NUR ---
Patient discharged with v/s stable. Written and verbal after care instructions given and explained. Patient alert, oriented and verbalized understanding of instructions. Ambulatory with steady gait. All questions addressed prior to discharge. ID band removed. Patient advised to follow up with PMD. Rx of TRAMADOL 50MG, AUGMENTIN 875MG AND MONISTAT CREAM given. Patient educated on indication of medication including possible reaction and side effects. Opportunity to ask questions provided and answered.
== END 2018-01-26 00:25 | disposition home or self-care (01) ==
LOC: MED 22:09
DX: N39.0 Urinary tract infection, site not specified (principal); Z88.2 Allergy status to sulfonamides; Z79.899 Other long term (current) drug therapy
CPT/HCPCS: 81001; 87086; 99284; Q0162

== ENCOUNTER 2018-02-10 21:17 | Emergency (ER) | payer OTHER ==
[~2018-02-10] VITALS: Ht 162.6 cm; Wt 59.0 kg
[2018-02-10 21:34] VITALS: BP 112/63
[2018-02-10] MEDS ORDERED: DICYCLOMINE HCL LIQUID 20 MG, ALUMINUM HYD/MAG/SIMETHICONE 30 ML, LIDOCAINE VISCOUS 2% ... PO ONE ×3 (22:20)
[2018-02-10] MEDS ORDERED: DICYCLOMINE HCL LIQUID 10 MG/5 ML UDC ONE (22:38)
[2018-02-10] MEDS ORDERED: LIDOCAINE VISCOUS 2% 20 ML UDC ONE (22:38)
[2018-02-10 22:40] VITALS: BP 112/63
== END 2018-02-10 22:40 | disposition home or self-care (01) ==
LOC: MED 21:17
DX: K29.70 Gastritis, unspecified, without bleeding (principal); Z85.89 Personal history of malignant neoplasm of other organs and systems; Z90.710 Acquired absence of both cervix and uterus; Z88.2 Allergy status to sulfonamides; Z79.899 Other long term (current) drug therapy
CPT/HCPCS: 81002; 81025; 99282

== ENCOUNTER 2018-02-11 18:17 | Emergency (ER) | payer OTHER ==
[~2018-02-11] VITALS: Ht 162.6 cm; Wt 59.0 kg
[2018-02-11 18:35] VITALS: BP 122/74
[2018-02-11] MEDS ORDERED: PANTOPRAZOLE 40 MG INJ VIAL IVP ONE (19:45)
[2018-02-11] MEDS ORDERED: DICYCLOMINE HCL LIQUID 10 MG/5 ML UDC PO ONE (19:45)
[2018-02-11] MEDS ORDERED: LIDOCAINE VISCOUS 2% 20 ML UDC PO ONE (19:45)
[2018-02-11] MEDS ORDERED: NACL 0.9% 1,000 ML IV ONE ×2 (19:45→21:05)
[2018-02-11] MEDS ORDERED: ALUMINUM HYD/MAG/SIMETHICONE 30 ML UDC PO ONE (19:45)
[2018-02-11 21:53] VITALS: BP 121/86
== END 2018-02-11 21:53 | disposition home or self-care (01) ==
LOC: MED 18:17
DX: K29.70 Gastritis, unspecified, without bleeding (principal); Z88.2 Allergy status to sulfonamides; Z85.9 Personal history of malignant neoplasm, unspecified; Z79.899 Other long term (current) drug therapy
CPT/HCPCS: 74176; 96361; 96374; 99284; C9113; J7030

== ENCOUNTER 2021-12-24 12:33 | Emergency (ER) | payer MEDICAID, OTHER ==
[~2021-12-24] VITALS: Ht 162.6 cm; Wt 50.8 kg
[~2021-12-24 12:33] MED LIST changes: -PAR2.5 PO; +[UNRECOGNIZED DRUG - CODE] PO
[2021-12-24 13:19] VITALS: BP 185/71
[2021-12-24] MEDS ORDERED: KETOROLAC 30 MG/ML VIAL IM ONE (14:50)
[2021-12-24 15:31] LABS: BASOPHILS % (AUTO) 0.9 % (0.0-2.0); EOSINOPHILS # (AUTO) 0.1 K/uL (0-0.4); EOSINOPHILS % (AUTO) 1.1 % (0.0-4.0); HEMOGLOBIN 14.2 g/dL (12.0-16.0); LYMPHOCYTES # (AUTO) 1.6 K/uL (2.5-16.5); LYMPHOCYTES % (AUTO) 29.2 % (20.5-51.1); MEAN CORPUSCULAR HEMOGLOBIN 31 pg (27-31); MEAN CORPUSCULAR HGB CONC 34 g/dL (33-37); MEAN CORPUSCULAR VOLUME 91.5 fL (80-94); MONOCYTES # (AUTO) 0.4 K/uL (0.8-1.0); MONOCYTES % (AUTO) 7.3 % (1.7-9.3); NEUTROPHILS # (AUTO) 3.3 K/uL (1.8-7.7); NEUTROPHILS % (AUTO) 61.5 % (42.2-75.2); PLATELET COUNT (AUTO) 268 K/uL (140-450); RED BLOOD CELL COUNT(AUTO) 4.59 MIL/uL (4.20-5.40); RED CELL DISTRIBUTION WIDTH 12.2 % (11.6-13.7); WHITE BLOOD COUNT (AUTO) 5.4 K/uL (4.8-10.8)
[2021-12-24 15:53] LABS: ALBUMIN 3.9 g/dL (3.4-5.0); ANION GAP 11.8 (8-16); CARBON DIOXIDE 32.9 mmol/L (21-32); CREATININE 0.7 mg/dL (0.6-1.3); POTASSIUM 4.7 mmol/L (3.5-5.1); TOTAL BILIRUBIN 0.2 mg/dL (0.0-1.0)
--- NOTE | 2021-12-24 16:40 | NUR ---
BIB SELF C/O HEMATURIA, VAGINAL PAIN, PAINFUL URINATION, NAUSEA,CHILLS X 5 DAYS.
[2021-12-24 16:55] VITALS: BP 170/70
--- NOTE | 2021-12-24 16:55 | NUR ---
Patient discharged with v/s stable. Written and verbal after care instructions given and explained. Patient alert, oriented and verbalized understanding of instructions. Ambulatory with steady gait. All questions addressed prior to discharge. ID band removed. Patient advised to follow up with PMD. Rx of MACROBID,PYRIDIUM given. Patient educated on indication of medication including possible reaction and side effects. Opportunity to ask questions provided and answered.
[2021-12-24 17:01] LABS: APPEARANCE,URINE CLEAR (CLEAR); BILIRUBIN,URINE NEGATIVE (NEGATIVE); BLOOD, URINE NEGATIVE (NEGATIVE); COLOR,URINE YELLOW (YELLOW); LEUKOCYTE ESTERASE ,URINE NEGATIVE (NEGATIVE); NITRITE, URINE NEGATIVE (NEGATIVE); UGLUCOSE NEGATIVE (NEGATIVE)
[2021-12-24] MEDS ORDERED: PYR100 PO (17:21)
[2021-12-24] MEDS ORDERED: NITR100C7 PO (17:21)
== END 2021-12-24 16:55 | disposition home or self-care (01) ==
LOC: MED 12:33
DX: N39.0 Urinary tract infection, site not specified (principal)
CPT/HCPCS: 36415; 80053; 81003; 81025; 83605; 85025; 87040; 87086; 96372; 99283; J1885

== ENCOUNTER 2022-04-13 15:45 | Emergency (ER) | payer MEDICAID ==
[~2022-04-13] VITALS: Ht 160 cm; Wt 50.8 kg
[~2022-04-13 15:45] MED LIST changes: +NITR100C7 PO; +PYR100 PO
[2022-04-13 16:10] VITALS: BP 146/68
[2022-04-13 16:26] LABS: APPEARANCE,URINE CLEAR (CLEAR); BILIRUBIN,URINE 1+ (NEGATIVE); BLOOD, URINE TRACE-I (NEGATIVE); LEUKOCYTE ESTERASE ,URINE TRACE (NEGATIVE); NITRITE, URINE POSITIVE (NEGATIVE); UGLUCOSE TRACE (NEGATIVE)
[2022-04-13 16:39] LABS: COLOR,URINE ORANGE (YELLOW)
--- NOTE | 2022-04-13 16:50 | NUR ---
41 y/o female bib self, c/o "vaginal pressure", "I have a ball coming out of my vagina", dysuria, white vaginal discharge for 2 days. denies vaginal bleeding. pmh: recovering addict, ESB, parshal hysterectomy nka med: suboxan, pyridium
--- NOTE | 2022-04-13 16:54 | NUR ---
DR NEAL AT BEDSIDE.
[2022-04-13] MEDS ORDERED: IBUP-2213 PO (17:03)
[2022-04-13] MEDS ORDERED: CIPR500T4 PO (17:03)
[2022-04-13] MEDS ORDERED: PHEN-1877 PO (17:03)
[2022-04-13] MEDS ORDERED: ACET-8905 PO (17:07)
[2022-04-13] MEDS ORDERED: FLUC150T PO (17:07)
[2022-04-13 17:18] VITALS: BP 146/68
--- NOTE | 2022-04-13 17:19 | NUR ---
The patient's care was reviewed and supervised by Jaycee Vaughn, RN, RN.
--- NOTE | 2022-04-13 17:19 | NUR ---
Patient discharged with v/s stable. Written and verbal after care instructions given and explained. Patient alert, oriented and verbalized understanding of instructions. Ambulatory with steady gait. All questions addressed prior to discharge. ID band removed. Patient advised to follow up with PMD. Rx of norco, ciprom diflucan, ibuprofen, pyridium (sent) given. Patient educated on indication of medication including possible reaction and side effects. Opportunity to ask questions provided and answered.
== END 2022-04-13 17:19 | disposition home or self-care (01) ==
LOC: MED 15:45
DX: N39.0 Urinary tract infection, site not specified (principal); R10.30 Lower abdominal pain, unspecified; Z85.9 Personal history of malignant neoplasm, unspecified
CPT/HCPCS: 81001; 81025; 87086; 99283

== ENCOUNTER 2022-04-20 12:26 | Emergency (ER) | payer MEDICAID ==
[~2022-04-20] VITALS: Ht 160 cm; Wt 52.2 kg
[~2022-04-20 12:26] MED LIST changes: +ACET-8905 PO; +CIPR500T4 PO; +FLUC150T PO; +IBUP-2213 PO; +PHEN-1877 PO
[2022-04-20 13:17] VITALS: BP 193/83
--- NOTE | 2022-04-20 13:25 | NUR ---
PT C/O DYSURIA, FREQUENCY X1 WEEK, COMPLETED CIPRO WITHOUT RELIEF PMH: DENIES
[2022-04-20] MEDS ORDERED: KETOROLAC 30 MG/ML VIAL IM ONE (13:50)
[2022-04-20 14:22] LABS: APPEARANCE,URINE CLEAR (CLEAR); BILIRUBIN,URINE NEGATIVE (NEGATIVE); BLOOD, URINE 1+ (NEGATIVE); COLOR,URINE YELLOW (YELLOW); LEUKOCYTE ESTERASE ,URINE 1+ (NEGATIVE); NITRITE, URINE NEGATIVE (NEGATIVE); UGLUCOSE NEGATIVE (NEGATIVE)
[2022-04-20 14:40] LABS: RBC,URINE 11-20 (MOD) /HPF (0-5)
[2022-04-20] MEDS ORDERED: CEPH-588 PO (15:19)
[2022-04-20] MEDS ORDERED: NAPR-54 PO (15:19)
[2022-04-20] MEDS ORDERED: PHEN-1877 PO (15:19)
[2022-04-20 15:55] VITALS: BP 131/84
--- NOTE | 2022-04-20 15:55 | NUR ---
Patient discharged with v/s stable. Written and verbal after care instructions given. Patient alert, oriented and verbalized understanding of instructions. Ambulatory with steady gait. All questions addressed prior to discharge. ID band removed. Patient advised to follow up with PMD. Rx of Keflex, Naproxen and Pyridium given. Opportunity to ask questions provided and answered.
--- NOTE | 2022-04-20 15:56 | NUR ---
The patient's care was reviewed and supervised by Starr Fields RN.
[2022-04-24] MEDS ORDERED: NITR100C7 PO (18:48)
[2022-04-24] MEDS ORDERED: AMOX-999 PO (20:20)
--- NOTE | 2022-04-25 10:00 | NUR ---
LATE ENTRY. RECEIVED POSITIVE URINE CULTURE. FORM GIVEN TO DR FELIX. DR FELIX SPOKE WITH PT DIRECTLY AND SENT NEW RX TO [facility]. FORM PLACED IN BINDER
== END 2022-04-20 15:55 | disposition home or self-care (01) ==
LOC: MED 12:26
DX: N39.0 Urinary tract infection, site not specified (principal); Z86.69 Personal history of other diseases of the nervous system and sense organs; Z85.89 Personal history of malignant neoplasm of other organs and systems; Z79.899 Other long term (current) drug therapy; Z79.1 Long term (current) use of non-steroidal anti-inflammatories (NSAID); Z79.2 Long term (current) use of antibiotics; Z79.891 Long term (current) use of opiate analgesic
CPT/HCPCS: 81001; 87086; 96372; 99283; J1885

== ENCOUNTER 2022-05-03 00:24 | Observation (INO) | payer MEDICAID ==
[~2022-05-03] VITALS: Ht 162.6 cm; Wt 51.3 kg
[~2022-05-03 00:24] MED LIST changes: +AMOX-999 PO; +CEPH-588 PO; +NAPR-54 PO
[2022-05-03 00:49] VITALS: BP 114/70
--- NOTE | 2022-05-03 00:56 | NUR ---
pt to bed
--- NOTE | 2022-05-03 01:06 | NUR ---
Patient BIB by family from home. C/O UTI symptoms on and off x 1 month. Patient reported, had on and off UTI symptoms on and off for one month, Patient took Antibiotics (Pills) , no relief.
--- NOTE | 2022-05-03 01:52 | NUR ---
Dr. Garcia examining patient.
[2022-05-03] MEDS ORDERED: MEROPENEM 1,000 MG in NACL 0.9% 50 ML IV ONE (02:00)
--- NOTE | 2022-05-03 02:14 | NUR ---
COVID-19 swab collected and sent to lab.
[2022-05-03 02:17] LABS: BASOPHILS # (AUTO) 0.1 K/uL (0.00-0.22); EOSINOPHILS # (AUTO) 0.1 K/uL (0-0.4); EOSINOPHILS % (AUTO) 1.5 % (0.0-4.0); HEMATOCRIT 35.7 % (36-48); HEMOGLOBIN 12.2 g/dL (12.0-16.0); LYMPHOCYTES # (AUTO) 2.3 K/uL (2.5-16.5); MEAN CORPUSCULAR HEMOGLOBIN 31 pg (27-31); MEAN CORPUSCULAR HGB CONC 34 g/dL (33-37); MEAN CORPUSCULAR VOLUME 90.4 fL (80-94); MONOCYTES # (AUTO) 0.6 K/uL (0.8-1.0); MONOCYTES % (AUTO) 10.6 % (1.7-9.3); NEUTROPHILS # (AUTO) 2.2 K/uL (1.8-7.7); NEUTROPHILS % (AUTO) 42.9 % (42.2-75.2); PLATELET COUNT (AUTO) 258 K/uL (140-450); RED BLOOD CELL COUNT(AUTO) 3.95 MIL/uL (4.20-5.40); RED CELL DISTRIBUTION WIDTH 13.5 % (11.6-13.7); WHITE BLOOD COUNT (AUTO) 5.2 K/uL (4.8-10.8)
[2022-05-03 02:17] LABS: BILIRUBIN,URINE NEGATIVE (NEGATIVE); BLOOD, URINE NEGATIVE (NEGATIVE); COLOR,URINE YELLOW (YELLOW); LEUKOCYTE ESTERASE ,URINE NEGATIVE (NEGATIVE); NITRITE, URINE NEGATIVE (NEGATIVE); UGLUCOSE NEGATIVE (NEGATIVE)
[2022-05-03 02:20] LABS: APPEARANCE,URINE CLEAR (CLEAR)
[2022-05-03] MEDS ORDERED: MEROPENEM 1,000 MG VIAL IV ONE (02:38)
[2022-05-03 02:40] LABS: ALBUMIN 3.9 g/dL (3.4-5.0); ANION GAP 9.2 (8-16); CARBON DIOXIDE 29.8 mmol/L (21-32); CREATININE 0.7 mg/dL (0.6-1.3); TOTAL BILIRUBIN 0.4 mg/dL (0.0-1.0)
--- NOTE | 2022-05-03 03:18 | NUR ---
BELONGINGS LIST DONE.
[2022-05-03] MEDS ORDERED: BUPR1FIL4 SL (03:58)
--- NOTE | 2022-05-03 03:58 | NUR ---
Med-rec reviewed.
--- NOTE | 2022-05-03 05:02 | NUR ---
Patient appears to be resting comfortably in bed. Vital Signs within normal limits. Respirations even and unlabored.
[2022-05-03] MEDS ORDERED: MAG SULF 2000 MG/WATER PREMIX 50 ML IV PRN (06:40)
[2022-05-03] MEDS ORDERED: ZOLPIDEM 10 MG TAB PO PRN (06:40)
[2022-05-03] MEDS ORDERED: LEVOFLOXACIN 500 MG/D5W PREMIX 100 ML IV SCH (06:40)
[2022-05-03] MEDS ORDERED: POTASSIUM CHLORIDE 10 MEQ TABER PO PRN (06:40)
[2022-05-03] MEDS ORDERED: DOCUSATE SODIUM 100 MG GELCAP PO PRN (06:40)
[2022-05-03] MEDS ORDERED: ACETAMINOPHEN 325 MG TAB PO PRN (06:40)
[2022-05-03] MEDS ORDERED: ONDANSETRON 4 MG/2 ML VIAL IVP PRN (06:40)
[2022-05-03] MEDS ORDERED: MORPHINE SULFATE 2 MG/ML SYR IVP PRN (06:40)
[2022-05-03] MEDS ORDERED: LORazepam 2 MG/ML VIAL IVP PRN (06:40)
--- NOTE | 2022-05-03 07:01 | NUR ---
Patient appears to be resting comfortably in bed. Vital Signs within normal limits. Respirations even and unlabored.
[2022-05-03] MEDS ORDERED: LEVOFLOXACIN 500 MG/D5W PREMIX 100 ML IV ONE (07:20)
--- NOTE | 2022-05-03 07:23 | NUR ---
Report given to BRANDY Stover and endorse care of patient.
--- NOTE | 2022-05-03 08:00 | NUR ---
Patient will be admitted to care of [facility]. Admited to MS. Will go to [id number]. Belongings list completed. Report to KYA REVELES.
--- NOTE | 2022-05-03 08:05 | NUR ---
ADMITTED FROM ER VIA WHEELCHAIR. A & O X4. SPEECH CLEAR. SKIN WARM, DRY AND INTACT. KEEP COMFORTABLE ON BED. EXPLAINED DIAGNOSIS, PLAN OF CARE, PAIN MANAGEMENT TEACHING, USE OF CALL LIGHT/BED/TV/BATHROOM. VERBALIZED UNDERSTANDING. ADMISSION PROCESS INITIATED. CALL LIGHT WITHIN REACH.
[2022-05-03 08:15] VITALS: BP 101/43
--- NOTE | 2022-05-03 08:30 | NUR ---
RECEIVED REPORT FROM ER NURSE WITH PRIMARY NURSE WHEN PT ARRIVED ON THE UNIT. Patient's Plan of Care was discussed and reviewed with CATERPILLAR DRIVER: ТАТЬЯНА
--- NOTE | 2022-05-03 09:36 | NUR ---
PATIENT HAS BEEN SCREENED AND CATEGORIZED LOW NUTRITION RISK. PATIENT WILL BE SEEN WITHIN 7 DAYS OF ADMISSION. 05/10/[address] K[address]N LE RD
[2022-05-03] MEDS: MEROPENEM 1,000 MG in NACL 0.9% 50 ML IV SCH (14:48)
[2022-05-03 16:00] VITALS: BP 102/57
--- NOTE | 2022-05-03 18:55 | NUR ---
DR. HO CAME AND SEEN PT..
[2022-05-03 20:00] VITALS: BP 103/67
--- NOTE | 2022-05-03 20:00 | NUR ---
NURSE REPORT REPORT OBTAINED FROM [facility] NURSE KYA AT 1915 AND THIS NURSE ASSUMED CARE OF PATIENT. VSS. AFEB. NO C/O PAIN OR DISCOMFORT, OR NAUSEA.
--- NOTE | 2022-05-04 03:00 | NUR ---
NURSE NOTES VSS. AFEB. GIVEN IVPB MERREM. NO C/O PAIN OR DISCOMFORT.
[2022-05-04] MEDS: MEROPENEM 1,000 MG in NACL 0.9% 50 ML IV SCH (03:03)
[2022-05-04 03:09] VITALS: BP 96/74
--- NOTE | 2022-05-04 07:15 | NUR ---
ASSUMED CONTINUITY OF CARE. BEGINNING OF SHIFT ASSESSMENT DONE. NO C/O PAIN. ASKED TO CALL NURSE IF NEEDS HELP. VERBALIZED UNDERSTANDING. CALL LIGHT WITHIN REACH.
--- NOTE | 2022-05-04 07:20 | NUR ---
NURSE REPORT REPORT GIVEN TO [facility] NURSE KYA TO ASSUME CARE. ALL QUESTIONS ANSWERED. ALLY CARNES RN
[2022-05-04 07:37] LABS: BASOPHILS % (AUTO) 0.4 % (0.0-2.0); EOSINOPHILS # (AUTO) 0.1 K/uL (0-0.4); EOSINOPHILS % (AUTO) 1.7 % (0.0-4.0); HEMATOCRIT 39.3 % (36-48); HEMOGLOBIN 13.3 g/dL (12.0-16.0); LYMPHOCYTES # (AUTO) 1.9 K/uL (2.5-16.5); LYMPHOCYTES % (AUTO) 36.7 % (20.5-51.1); MEAN CORPUSCULAR HEMOGLOBIN 31 pg (27-31); MEAN CORPUSCULAR HGB CONC 34 g/dL (33-37); MEAN CORPUSCULAR VOLUME 91.2 fL (80-94); MONOCYTES # (AUTO) 0.4 K/uL (0.8-1.0); MONOCYTES % (AUTO) 8.4 % (1.7-9.3); NEUTROPHILS # (AUTO) 2.7 K/uL (1.8-7.7); NEUTROPHILS % (AUTO) 52.8 % (42.2-75.2); PLATELET COUNT (AUTO) 264 K/uL (140-450); RED BLOOD CELL COUNT(AUTO) 4.31 MIL/uL (4.20-5.40); RED CELL DISTRIBUTION WIDTH 13.1 % (11.6-13.7); WHITE BLOOD COUNT (AUTO) 5.2 K/uL (4.8-10.8)
[2022-05-04 07:41] LABS: ANION GAP 9.1 (8-16); CREATININE 0.7 mg/dL (0.6-1.3); POTASSIUM 4.1 mmol/L (3.5-5.1)
--- NOTE | 2022-05-04 07:42 | NUR ---
DR. GAONA TOGETHER WITH MEDICAL STUDENTS CAME AND SEEN PT..
[2022-05-04 08:00] VITALS: BP 100/42
--- NOTE | 2022-05-04 08:00 | NUR ---
Patient's Plan of Care was discussed and reviewed with HYDROELECTRIC PRODUCTION MANAGER: KYA
[2022-05-04] MEDS ORDERED: AMOX-999 PO (10:07)
--- NOTE | 2022-05-04 13:45 | NUR ---
D/C HOME VIA WHEELCHAIR. IN STABLE CONDITION. INFORMED CHARGE NURSE ATIF ESTRADA
--- NOTE | 2022-05-11 09:13 | NUR ---
LATE ENTRY - CONFIRMED WITH NURSE END TIMES FOR MEROPENEM INFUSIONS, SEE BELOW: MEROPENEM #1 - [id number] 05/03/22 MEROPENEM #2 - [id number] 05/04/22
== END 2022-05-04 13:56 | disposition home or self-care (01) ==
LOC: MED 00:24 → MMU 05:11 → MTU 05:50
PROVIDERS: ADMIT Family Medicine; ATTEND Family Medicine
DX: N39.0 Urinary tract infection, site not specified (principal); Z20.822 Contact with and (suspected) exposure to COVID-19; K21.9 Gastro-esophageal reflux disease without esophagitis; Z87.891 Personal history of nicotine dependence; Z87.440 Personal history of urinary (tract) infections; Z88.2 Allergy status to sulfonamides; Z79.899 Other long term (current) drug therapy
CPT/HCPCS: 36415; 76770; 80048; 80053; 81003; 83735; 85025; 87081; 87086; 87426; 96365; 96366; 96367; 96375; 99284; G0378; J1956; J2185; J2270; J2405; J3475; Q0092

== ENCOUNTER 2023-08-01 09:26 | Inpatient (IN) | payer MEDICAID ==
[~2023-08-01] VITALS: Ht 162.6 cm; Wt 54.4 kg
[~2023-08-01 09:26] MED LIST changes: -ACET-8905 PO; -CEPH-588 PO; -CIPR500T4 PO; -FLUC150T PO; -IBUP-2213 PO; -NAPR-54 PO; -NITR100C7 PO; -OXYC1TAB PO; -PHEN-1877 PO; -PRIM50TA13 PO; -PYR100 PO; -[UNRECOGNIZED DRUG - CODE] PO
[2023-08-01 09:29] VITALS: BP 130/77; PULSE 112; RESP 18; TEMP 97.3; O2SAT 97
[2023-08-01 09:45] VITALS: O2SAT 8
[2023-08-01 09:58] LABS: BASOPHILS % (AUTO) 0.5 % (0.0-2.0); EOSINOPHILS % (AUTO) 0.6 % (0.0-4.0); HEMATOCRIT 43.8 % (36-48); HEMOGLOBIN 14.6 g/dL (12.0-16.0); LYMPHOCYTES # (AUTO) 1.1 K/uL (2.5-16.5); LYMPHOCYTES % (AUTO) 14.6 % (20.5-51.1); MEAN CORPUSCULAR HEMOGLOBIN 31 pg (27-31); MEAN CORPUSCULAR HGB CONC 33 g/dL (33-37); MEAN CORPUSCULAR VOLUME 91.8 fL (80-94); MONOCYTES # (AUTO) 0.5 K/uL (0.8-1.0); MONOCYTES % (AUTO) 6.9 % (1.7-9.3); NEUTROPHILS # (AUTO) 5.8 K/uL (1.8-7.7); NEUTROPHILS % (AUTO) 77.4 % (42.2-75.2); PLATELET COUNT (AUTO) 283 K/uL (140-450); RED BLOOD CELL COUNT(AUTO) 4.77 MIL/uL (4.20-5.40); RED CELL DISTRIBUTION WIDTH 13.3 % (11.6-13.7); WHITE BLOOD COUNT (AUTO) 7.4 K/uL (4.8-10.8)
[2023-08-01] MEDS: NACL 0.9% 1,000 ML IV ONE (09:58)
[2023-08-01 10:14] LABS: ANION GAP 9.9 (8-16); CALCIUM 9.3 mg/dL (8.5-10.1); CARBON DIOXIDE 30.3 mmol/L (21-32); CREATININE 0.7 mg/dL (0.6-1.3); POTASSIUM 4.2 mmol/L (3.5-5.1)
[2023-08-01] MEDS: ONDANSETRON 4 MG/2 ML VIAL IVP ONE (10:15)
[2023-08-01] MEDS: MORPHINE SULFATE 4 MG/ML SYR IVP ONE (10:26)
[2023-08-01 10:33] LABS: ALBUMIN 3.8 g/dL (3.4-5.0); BILIRUBIN,DIRECT 0.1 mg/dL (0.0-0.3); TOTAL BILIRUBIN 0.6 mg/dL (0.0-1.0); TOTAL PROTEIN, SERUM 7.1 g/dL (6.4-8.2)
[2023-08-01 11:59] LABS: APPEARANCE,URINE CLEAR (CLEAR); BILIRUBIN,URINE NEGATIVE (NEGATIVE); BLOOD, URINE NEGATIVE (NEGATIVE); COLOR,URINE YELLOW (YELLOW); LEUKOCYTE ESTERASE ,URINE NEGATIVE (NEGATIVE); NITRITE, URINE NEGATIVE (NEGATIVE); PROTEIN,URINE NEGATIVE (NEGATIVE); UGLUCOSE NEGATIVE (NEGATIVE); UROBILINOGEN,URINE 0.2 EU/dL (0.2 - 1)
[2023-08-01] MEDS ORDERED: MAG SULF 2000 MG/WATER PREMIX 50 ML IV PRN (17:25)
[2023-08-01] MEDS ORDERED: KCL 20 MEQ IN 100 mL PREMIX 200 ML IV PRN (17:25)
[2023-08-01] MEDS ORDERED: POLYETHYLENE GLYCOL 17 GM/PKT PO PRN (17:25)
[2023-08-01] MEDS ORDERED: HYDROcodone/APAP 5/325 MG 1 TAB TAB PO PRN (17:25)
[2023-08-01] MEDS ORDERED: ONDANSETRON 4 MG/2 ML VIAL IVP PRN (17:25)
[2023-08-01] MEDS ORDERED: MORPHINE SULFATE 2 MG/ML SYR IVP PRN (17:25)
[2023-08-01] MEDS ORDERED: BUPR1FIL2 SL (18:01)
[2023-08-01] MEDS: NACL 0.9% 1,000 ML IV SCH (18:15)
[2023-08-01 19:00] VITALS: BP 116/62; PULSE 88; RESP 17; TEMP 97.5; O2SAT 97
[2023-08-01 19:50] VITALS: PULSE 75; RESP 18; O2SAT 96
[2023-08-01 20:00] VITALS: PULSE 75; RESP 18
[2023-08-01] MEDS ORDERED: SODIUM PHOSPHATE 118 ML ENEM RC SCH (20:55)
[2023-08-01] MEDS: MELATONIN 3 MG TAB PO PRN (21:21)
[2023-08-01] MEDS: ACETAMINOPHEN 325 MG TAB PO PRN (21:22)
[2023-08-02 04:00] VITALS: BP 94/51; PULSE 79; RESP 16; TEMP 97.4; O2SAT 99
[2023-08-02 07:17] LABS: BASOPHILS % (AUTO) 0.4 % (0.0-2.0); EOSINOPHILS % (AUTO) 0.7 % (0.0-4.0); HEMATOCRIT 38.7 % (36-48); HEMOGLOBIN 13.2 g/dL (12.0-16.0); LYMPHOCYTES # (AUTO) 1.7 K/uL (2.5-16.5); LYMPHOCYTES % (AUTO) 33.6 % (20.5-51.1); MEAN CORPUSCULAR HEMOGLOBIN 31 pg (27-31); MEAN CORPUSCULAR HGB CONC 34 g/dL (33-37); MEAN CORPUSCULAR VOLUME 91.5 fL (80-94); MONOCYTES # (AUTO) 0.4 K/uL (0.8-1.0); NEUTROPHILS # (AUTO) 2.9 K/uL (1.8-7.7); NEUTROPHILS % (AUTO) 57.3 % (42.2-75.2); PLATELET COUNT (AUTO) 266 K/uL (140-450); RED BLOOD CELL COUNT(AUTO) 4.23 MIL/uL (4.20-5.40); RED CELL DISTRIBUTION WIDTH 13.1 % (11.6-13.7)
[2023-08-02 07:40] LABS: ANION GAP 10.8 (8-16); CALCIUM 8.6 mg/dL (8.5-10.1); CREATININE 0.6 mg/dL (0.6-1.3); MAGNESIUM 1.8 mg/dL (1.8-2.4); PHOSPHORUS 3.6 mg/dL (2.5-4.9); POTASSIUM 3.8 mmol/L (3.5-5.1); TOTAL BILIRUBIN 0.7 mg/dL (0.0-1.0); TOTAL PROTEIN, SERUM 5.9 g/dL (6.4-8.2)
[2023-08-02 08:00] VITALS: BP 104/54; PULSE 86; RESP 18; TEMP 97.8; O2SAT 96
[2023-08-02 12:00] VITALS: BP 104/54; PULSE 86; RESP 18; TEMP 97.8; O2SAT 96
[2023-08-02] MEDS ORDERED: MIRABULK PO (14:35)
[2023-08-02 14:42] VITALS: BP 104/54; PULSE 86; RESP 18; TEMP 97.8
== END 2023-08-02 16:00 | disposition home or self-care (01) | DRG 247 ==
LOC: MED 09:26 → MMU 16:32 → MTU 18:07
PROVIDERS: ADMIT Family Medicine; ATTEND Family Medicine
DX: K56.7 Ileus, unspecified (principal); K59.00 Constipation, unspecified; Z79.899 Other long term (current) drug therapy; Z88.2 Allergy status to sulfonamides
CPT/HCPCS: 36415; 74021; 80048; 80053; 80076; 81003; 83605; 83690; 83735; 84100; 85025; 96361; 96374; 96375; 99285; J2270; J2405

== ENCOUNTER 2023-11-08 00:34 | Emergency (ER) | payer MEDICAID ==
[~2023-11-08] VITALS: Ht 162.6 cm; Wt 59.0 kg
[~2023-11-08 00:34] MED LIST changes: -AMOX-999 PO; +BUPR1FIL2 SL; +MIRABULK PO
[2023-11-08 00:39] VITALS: BP 136/88; PULSE 110; RESP 24; TEMP 96.8; O2SAT 100
[2023-11-08 01:41] LABS: BASOPHILS # (AUTO) 0.1 K/uL (0.00-0.22); BASOPHILS % (AUTO) 1.6 % (0.0-2.0); EOSINOPHILS # (AUTO) 0.1 K/uL (0-0.4); EOSINOPHILS % (AUTO) 1.1 % (0.0-4.0); HEMATOCRIT 42.7 % (36-48); HEMOGLOBIN 14.3 g/dL (12.0-16.0); LYMPHOCYTES # (AUTO) 0.8 K/uL (2.5-16.5); MEAN CORPUSCULAR HEMOGLOBIN 31 pg (27-31); MEAN CORPUSCULAR HGB CONC 34 g/dL (33-37); MEAN CORPUSCULAR VOLUME 91.6 fL (80-94); MONOCYTES # (AUTO) 0.5 K/uL (0.8-1.0); MONOCYTES % (AUTO) 5.4 % (1.7-9.3); NEUTROPHILS # (AUTO) 7.9 K/uL (1.8-7.7); NEUTROPHILS % (AUTO) 83.9 % (42.2-75.2); PLATELET COUNT (AUTO) 319 K/uL (140-450); RED BLOOD CELL COUNT(AUTO) 4.66 MIL/uL (4.20-5.40); RED CELL DISTRIBUTION WIDTH 13.4 % (11.6-13.7); WHITE BLOOD COUNT (AUTO) 9.4 K/uL (4.8-10.8)
[2023-11-08 01:54] LABS: ANION GAP 9.5 (8-16); CARBON DIOXIDE 33.5 mmol/L (21-32); CREATININE 0.8 mg/dL (0.6-1.3)
[2023-11-08 01:58] LABS: ALBUMIN 3.8 g/dL (3.4-5.0); BILIRUBIN,DIRECT 0.1 mg/dL (0.0-0.3); TOTAL BILIRUBIN 0.4 mg/dL (0.0-1.0); TOTAL PROTEIN, SERUM 7.4 g/dL (6.4-8.2)
[2023-11-08] MEDS: MORPHINE SULFATE 4 MG/ML SYR IVP ONE (02:00)
[2023-11-08] MEDS: ONDANSETRON 4 MG/2 ML VIAL IVP ONE (02:01)
[2023-11-08] MEDS: NACL 0.9% 1,000 ML IV ONE (02:01)
[2023-11-08] MEDS: POLYETHYLENE GLYCOL 17 GM/PKT PO ONE (04:01)
[2023-11-08] MEDS ORDERED: LACT-58 PO (04:02)
[2023-11-08 04:06] VITALS: BP 132/79; PULSE 78; RESP 14; O2SAT 98
== END 2023-11-08 04:09 | disposition home or self-care (01) ==
LOC: MED 00:34
DX: K59.00 Constipation, unspecified (principal); R10.84 Generalized abdominal pain; Z86.69 Personal history of other diseases of the nervous system and sense organs; Z79.899 Other long term (current) drug therapy; Z88.2 Allergy status to sulfonamides
CPT/HCPCS: 36415; 74176; 80048; 80076; 82150; 83690; 85025; 96361; 96374; 96375; 99285; J2270; J2405; J7030